=== PATIENT | female | born 1970 | race African-American/Black ===

== ENCOUNTER 2020-04-13 23:35 | Emergency (ER) | payer MEDICAID, OTHER ==
[~2020-04-13] VITALS: Ht 167.6 cm; Wt 81.6 kg
[2020-04-13 23:44] VITALS: BP 130/58
[2020-04-14] MEDS ORDERED: KETOROLAC TROMETH 60MG/2ML VIAL IM ONE (01:00)
== END 2020-04-14 01:23 | disposition home or self-care (01) ==
LOC: ER 23:38
DX: L02.212 Cutaneous abscess of back [any part, except buttock and flank] (principal); F32.9 Major depressive disorder, single episode, unspecified
CPT/HCPCS: 10060; 99283; J1885

== ENCOUNTER 2020-04-16 23:10 | Emergency (ER) | payer MEDICAID ==
[~2020-04-16] VITALS: Ht 167.6 cm; Wt 81.6 kg
[2020-04-17 03:21] VITALS: BP 114/67
== END 2020-04-17 04:32 | disposition home or self-care (01) ==
LOC: ER 23:17
DX: Z48.00 Encounter for change or removal of nonsurgical wound dressing (principal); M54.5 Low back pain; L02.212 Cutaneous abscess of back [any part, except buttock and flank]

== ENCOUNTER 2020-04-20 10:59 | Emergency (ER) | payer MEDICAID ==
[~2020-04-20] VITALS: Ht 167.6 cm; Wt 81.6 kg
[2020-04-20 11:21] VITALS: BP 119/44
== END 2020-04-20 12:19 | disposition home or self-care (01) ==
LOC: ER 10:59
DX: L02.212 Cutaneous abscess of back [any part, except buttock and flank] (principal); Z48.01 Encounter for change or removal of surgical wound dressing

== ENCOUNTER 2021-11-30 04:53 | Emergency (ER) | payer MEDICAID, OTHER ==
[~2021-11-30] VITALS: Ht 167.6 cm; Wt 81.6 kg
[2021-11-30 05:24] LABS: Basophils # (auto) 0 10 ^3/uL (0-0.2); Basophils % (auto) 0.9 % (0.0-2.0); Eosinophils # (auto) 0.1 10 ^3/uL (0-0.8); Eosinophils % (auto) 2.9 % (0.0-7.0); Hematocrit 39.3 % (36.0-46.0); Hemoglobin 13.3 g/dL (12.2-16.2); Mean Corpuscular Hemoglobin 28.3 pg (28.0-32.0); Mean Corpuscular Hgb Conc. 33.8 g/dL (32.0-36.0); Mean Corpuscular Volume 83.6 fL (80.0-100.0); Monocytes # (auto) 0.3 10 ^3/uL (0-1.3); Monocytes % (auto) 5.6 % (0.0-12.0); Neutrophils # (auto) 2.1 10 ^3/uL (1.6-8.6); Neutrophils % (auto) 46.6 % (37.0-80.0); Nucleated Red Blood Cells % 0.1 %; Red Cell Distribution Width 14.1 % (11.8-14.3); White Blood Cell 4.5 10^3/uL (4.4-10.8)
[2021-11-30 05:42] LABS: Calcium 8.9 mg/dL (8.5-10.1); Potassium 3.7 mmol/L (3.5-5.1)
[2021-11-30 05:45] LABS: BUN/Creatinine Ratio 7.3
[2021-11-30 07:22] LABS: Urine Bacteria NONE SEEN /hpf (None Seen); Urine Blood Negative /uL (Negative); Urine Specific Gravity 1.012 (1.001-1.035); Urine WBC 3 /hpf (0 - 5)
[2021-11-30] MEDS ORDERED: NITR-87 PO (08:50)
[2021-11-30] MEDS ORDERED: TRAM-297 PO (08:50)
[2021-11-30 09:02] VITALS: BP 114/63
== END 2021-11-30 09:05 | disposition home or self-care (01) ==
LOC: ER 04:53
DX: D21.9 Benign neoplasm of connective and other soft tissue, unspecified (principal); N39.0 Urinary tract infection, site not specified
CPT/HCPCS: 36415; 76830; 76856; 80048; 81001; 84702; 85025; 86850; 86900; 86901

== ENCOUNTER 2021-12-23 07:54 | Emergency (ER) | payer OTHER, MEDICAID ==
[~2021-12-23] VITALS: Ht 167.6 cm; Wt 77.1 kg
[~2021-12-23 07:54] MED LIST: NITR-87 PO; TRAM-297 PO
[2021-12-23 08:47] VITALS: BP 139/68
[2021-12-23] MEDS ORDERED: ONDANSETRON ODT 4 MG TAB PO ONE (09:15)
[2021-12-23] MEDS ORDERED: HYDROcodone-ACET 5/325MG TAB PO ONE (09:15)
[2021-12-23] MEDS ORDERED: ACE3T PO (09:57)
[2021-12-23] MEDS ORDERED: CYCL-837 PO (09:57)
== END 2021-12-23 10:58 | disposition home or self-care (01) ==
LOC: ER 07:54
DX: S29.012A Strain of muscle and tendon of back wall of thorax, initial encounter (principal); S16.1XXA Strain of muscle, fascia and tendon at neck level, initial encounter; V89.2XXA Person injured in unspecified motor-vehicle accident, traffic, initial encounter; Y93.89 Activity, other specified; Y92.89 Other specified places as the place of occurrence of the external cause; Y99.8 Other external cause status
CPT/HCPCS: 72070; 72125; 99284; Q0162

== ENCOUNTER 2022-04-25 06:48 | Emergency (ER) | payer MEDICAID, OTHER ==
[~2022-04-25] VITALS: Ht 167.6 cm; Wt 77.2 kg
[~2022-04-25 06:48] MED LIST changes: +ACE3T PO; +CYCL-837 PO
[2022-04-25 07:32] LABS: Urine Bacteria FEW /hpf (None Seen); Urine Blood Negative /uL (Negative); Urine Specific Gravity 1.008 (1.001-1.035); Urine WBC 4 /hpf (0 - 5)
[2022-04-25 07:39] VITALS: BP 124/70
[2022-04-25] MEDS ORDERED: CIPR-173 PO (07:52)
== END 2022-04-25 07:53 | disposition home or self-care (01) ==
LOC: ER 06:48
DX: N39.0 Urinary tract infection, site not specified (principal)
CPT/HCPCS: 81001; 87086

== ENCOUNTER 2022-10-05 19:07 | Emergency (ER) | payer MEDICAID ==
[~2022-10-05] VITALS: Ht 167.6 cm; Wt 82.8 kg
[~2022-10-05 19:07] MED LIST changes: +CIPR-173 PO
[2022-10-05] MEDS ORDERED: ALBUTEROL SULF 2.5 MG/0.5ML(0.5%) NEB SOLN NEB ONE (19:30)
[2022-10-05] MEDS ORDERED: EPINEPHrine HCL 1 MG/1 ML AMP IM ONE (19:30)
[2022-10-05] MEDS ORDERED: DexAMETHasone SOD PHOS 10MG/1ML VIAL INJ IV ONE (19:30)
[2022-10-05] MEDS ORDERED: SODIUM CHLORIDE 0.9% 1,000 ML IV ONE (19:30)
[2022-10-05] MEDS ORDERED: diphenhdrAMINE HCL 50 MG/1 ML VL IV ONE (19:30)
[2022-10-05] MEDS ORDERED: FAMOTIDINE (10MG/ML) 2ML VL IV ONE (19:30)
[2022-10-05] MEDS ORDERED: EPIN1INJ IJ (22:01)
[2022-10-05] MEDS ORDERED: LEVOTAB51 PO (22:01)
[2022-10-05] MEDS ORDERED: PRED20TA2 PO (22:01)
[2022-10-05] MEDS ORDERED: DIPH50TA9 PO (22:01)
[2022-10-05] MEDS ORDERED: FAMO20TA10 PO (22:01)
[2022-10-06 06:00] VITALS: BP 117/59
== END 2022-10-06 06:35 | disposition home or self-care (01) ==
LOC: ER 19:07
DX: T78.40XA Allergy, unspecified, initial encounter (principal); X58.XXXA Exposure to other specified factors, initial encounter
CPT/HCPCS: 94640; 96361; 96372; 96374; 96375; 99285; J0171; J1100; J1200; J3490; J7030

== ENCOUNTER 2024-08-08 09:41 | Inpatient (IN) | payer BC, MEDICAID ==
[~2024-08-08] VITALS: Ht 167.6 cm; Wt 77.5 kg
[~2024-08-08 09:41] MED LIST changes: +DIPH50TA9 PO; +EPIN1INJ IJ; +FAMO20TA10 PO; +LEVOTAB51 PO; +PRED20TA2 PO
--- NOTE | 2024-08-08 09:59 | ED.PDOC ---
HPI Comments 54 year old female presents to the ED with chief complaint of chest pain. Patient reports that she had started to experience sternal chest pain approximately 30 minutes ago after intercourse. Patient relays that she had taken methamphetamine at around 1am this morning. Patient denies any N/V/D, SOB, dizziness, headache, or fever. Chief Complaint: Chest Pain Time Seen by MD: 09:54 Primary Care Provider: OUT OF TOWN Reviewed Notes: Nurses Notes, Medications, Allergies Allergies: Coded Allergies: NO KNOWN ALLERGIES (Unverified , 04/13/20) Home Meds Active Scripts Levocetirizine Hydrochloride (Levocetirizine Dihydrochl) 5 Mg Tab, 5 MG PO DAILY, #30 TAB Prov:MARIA INES KNOX MD 10/05/22 Famotidine (PEPCID TABLET) 20 Mg Tb, 1 TAB PO BID, #14 TAB 5 Refills Prov:MARIA INES KNOX MD 10/05/22 Diphenhydramine Hcl (Diphenhydramine Hcl) 50 Mg Tab, 50 MG PO TID PRN, #30 TAB Prov:MARIA INES KNOX MD 10/05/22 Epinephrine (ADRENALIN) 1 Mg/Ml Inj, 1 MG IJ ONCE PRN, #1 INJ Prov:MARIA INES KNOX MD 10/05/22 Prednisone (Prednisone) 20 Mg Tab, 60 MG PO DAILY for 5 Days, #15 TAB Prov:MARIA INES KNOX MD 10/05/22 Ciprofloxacin Hcl (Cipro) 500 Mg Tab, 1 TAB PO BID, #20 TAB Prov:CATHY TINEO 04/25/22 Acetaminophen W/ Codeine (Tylenol W/Cod #3) 1 Tab Tb, 1 TAB PO QID PRN, #10 TAB 0 Refills Prov:VENKATA HERMOSILLO 12/23/21 Cyclobenzaprine Hcl (Cyclobenzaprine Hcl) 5 Mg Tab, 1 TAB PO QPM PRN, #14 TAB 0 Refills Prov:VENKATA HERMOSILLO 12/23/21 Nitrofurantoin Monohydrate Mac (Macrobid) 100 Mg Cap, 100 MG PO BID for 5 Days, #10 CAP Prov:BELEM BURDEN MD 11/30/21 Tramadol Hcl (Ultram) 50 Mg Tab, 1 TAB PO Q6HR, #30 TAB Prov:BELEM BURDEN MD 11/30/21 Information Source: Patient Mode of Arrival: Ambulatory Severity: Moderate Timing: Minutes Duration: Since onset Prehospital treatment: None Location: Substernal Radiation: No Radiation Quality: Aching Onset: At Rest Cardiac Risk Factors: Smoker, Drugs PE Risk Factors: None Past Medical History PAST MEDICAL HISTORY: Depression, UTI'S Surgical History (Other): Left arm surgery. 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 Family History Family History: Reviewed,noncontributory to illness, Family hx of HTN Social History Smoker: Cigarettes Alcohol: Occasionally Drugs: Methamphetamine Lives In: Home Constitutional: denies: chills, diaphoresis, fatigue, fever, malaise, sweats, weakness, others EENTM: denies: blurred vision, double vision, ear bleeding, ear discharge, ear drainage, ear pain, ear ringing, eye pain, eye redness, hearing loss, mouth pain, mouth swelling, nasal discharge, nose bleeding, nose congestion, nose pain, photophobia, tearing, throat pain, throat swelling, voice changes, others Respiratory: denies: cough, hemoptysis, orthopnea, SOB at rest, shortness of breath, SOB with excertion, stridor, wheezing, others Cardiovascular: reports: chest pain; denies: dizzy spells, diaphoresis, Dyspnea on exertion, edema, irregular heart beat, left arm pain, lightheadedness, palpitations, PND, syncope, others Gastrointestinal: denies: abdomen distended, abdominal pain, blood streaked bowels, constipated, diarrhea, dysphagia, difficulty swallowing, hematemesis, melena, nausea, poor appetite, poor fluid intake, rectal bleeding, rectal pain, vomiting, others Genitourinary: denies: abnormal vagina bleeding, burning, dyspareunia, dysuria, flank pain, frequency, hematuria, incontinence, pain, , vagina discharge, urgency, others Neurological: denies: dizziness, fainting, headache, left sided numbness, left sided weakness, numbness, paresthesia, pre-existing deficit, right sided numbness, right sided weakness, seizure, speech problems, tingling, tremors, weakness, others Musculoskeletal: denies: back pain, gout, joint pain, joint swelling, muscle pain, muscle stiffness, neck pain, others Integumetry: denies: bruises, change in color, change in hair/nails, dryness, laceration, lesions, lumps, rash, wounds, others Allergic/Immunocompromised: denies: Difficulty Healing, Frequent Infections, Hives, Itching, others Hematologic/Lymphatic: denies: anemia, blood clots, easy bleeding, easy bruising, swollen glands, others Endocrine: denies: excessive hunger, excessive sweating, excessive thirst, excessive urination, flushing, intolerance to cold, intolerance to heat, unexplained weight gain, unexplained weight loss, others Psychiatric: denies: anxiety, bipolar disorder, depression, hopeless, panic disorder, schizophrenia, sleepless, suicidal, others All Other Systems: Reviewed and Negative Physical Exam General Appearance: Moderate Distress, Normal HEENT: Normal ENT Inspection, PERRL/EOMI Neck: Full Range of Motion, Non-Tender, Normal, Normal Inspection Respiratory: Chest Non-Tender, Lungs Clear, No Accessory Muscle Use, No Respiratory Distress, Normal Breath Sounds Cardiovascular: No Edema, No JVD, No Murmur, No Gallop, Normal Peripheral Pulses, Regular Rate/Rhythm Breast Exam: Deferred Gastrointestinal: No Organomegaly, Non Tender, No Pulsatile Mass, Normal Bowel Sounds, Soft Genitalia: Deferred Pelvic: Deferred Rectal: Deferred Extremities: No calf tenderness, Normal capillary refill, Normal inspection, Normal range of motion, Non-tender, No pedal edema Musculoskeletal : Apperance: Normal Neurologic: Alert, uniform force captain II-XII nml as Tested, No Motor Deficits, Normal Affect, Normal Mood, No Sensory Deficits Cerebellar Function: Normal Reflexes: Normal Skin: Dry, Normal Color, Warm Peripheral Pulses: 3+ Radial (R), 3+ Radial (L) Lymphatic: No Adenopathy Was a procedure done? Was a procedure done?: No CP Differential Dx Differential Diagnosis: A-fib, A-Flutter, Angina, Anxiety / Panic Attack, Atrial Dysrhythmia, Electrolyte Disorder X-Ray, Labs, Meds, VS Vital Signs Date Time Temp Pulse Resp B/P (MAP) Pulse Ox O2 Delivery O2 Flow Rate FiO2 08/08/24 10:41 97.6 74 18 109/69 (82) 100 97.6 08/08/24 10:37 98.0 84 17 107/68 (81) 100 98.0 08/08/24 10:37 84 17 08/08/24 09:48 82 08/08/24 09:42 98.0 84 17 107/68 (81) 100 Lab Test 08/08/24 09:50 Range/Units White Blood Count 5.7 4.4-10.8 10^3/uL Red Blood Count 4.70 4.0-5.20 10^6/uL Hemoglobin 12.9 12.2-16.2 g/dL Hematocrit 38.8 36.0-46.0 % Mean Corpuscular Volume 82.7 80.0-100.0 fL Mean Corpuscular Hemoglobin 27.4 L 28.0-32.0 pg Mean Corpuscular Hemoglobin Concent 33.1 32.0-36.0 g/dL Red Cell Distribution Width 13.6 11.8-14.3 % Platelet Count 282 140-450 10^3/uL Mean Platelet Volume 8.4 6.9-10.8 fL Neutrophils (%) (Auto) 41.2 37.0-80.0 % Lymphocytes (%) (Auto) 51.6 H 10.0-50.0 % Monocytes (%) (Auto) 5.6 0.0-12.0 % Eosinophils (%) (Auto) 1.2 0.0-7.0 % Basophils (%) (Auto) 0.4 0.0-2.0 % Neutrophils # (Auto) 2.4 1.6-8.6 10 ^3/uL Lymphocytes # (Auto) 3.0 0.4-5.4 10 ^3/uL Monocytes # (Auto) 0.3 0-1.3 10 ^3/uL Eosinophils # (Auto) 0.1 0-0.8 10 ^3/uL Basophils # (Auto) 0 0-0.2 10 ^3/uL Nucleated Red Blood Cells 0.1 % Sodium Level 140 136-145 mmol/L Potassium Level 3.5 3.5-5.1 mmol/L Chloride Level 104 98-107 mmol/L Carbon Dioxide Level 29 20-31 mmol/L Anion Gap 7 5-15 Blood Urea Nitrogen 12 9-23 mg/dL Creatinine 1.17 H 0.550-1.02 mg/dL Glomerular Filtration Rate Calc 55 >90 mL/min BUN/Creatinine Ratio 10.3 10.0-20.0 Serum Glucose 124 H 74-106 mg/dL Calcium Level 9.9 8.7-10.4 mg/dL Total Bilirubin 0.4 0.2-1.0 mg/dL Aspartate Amino Transferase (AST) 26 13-40 U/L Alanine Aminotransferase (ALT) 29 7-40 U/L Alkaline Phosphatase 91 46-116 U/L Troponin I High Sensitivity < 3 L </=34 ng/L Total Protein 7.4 5.7-8.2 g/dL Albumin 4.6 3.2-4.8 g/dL Current Medications Medications (Trade) Dose Ordered Sig/Jordin Route Start Time Stop Time Status Last Admin Aspirin 325 mg ONCE ONCE PO 08/08/24 10:00 08/08/24 10:01 DC 08/08/24 10:28 Patient alert. Complaining of chest pain. Was given aspirin. Vitals stable. Smoke cigarettes. Counseled patient on effects of smoking cigarettes. Had methamphetamine. Chest pain upon exertion. EKG reviewed does not show any acute changes. Risk factors for coronary artery disease. Explained to the patient. Continue cardiac monitoring. Chest XR: FINDINGS: Medical devices: None. Cardiomediastinal: The heart is normal in size. Pulmonary vasculature is within normal limits. Lungs: No focal pulmonary opacity is seen. The costophrenic angles are clear. No pneumothorax. Bones/soft tissues: No acute abnormality is noted. IMPRESSION: 1. No acute cardiopulmonary disease. Time of 1ST Reevaluation: 10:54 Reevaluation 1ST: Unchanged Patient Education/Counseling: Diagnosis, Treatment Family Education/Counseling: No Family Present Departure 1 Departure Time of Disposition: 10:12 Impression: Primary Impression: Chest pain of unknown etiology Disposition: ADMITTED INPATIENT Admit to: Med Surg Condition: Guarded Critical Care Note Critical Care Time?: Yes (45 min-critical care time only) Critical care comment: Monitor chest pain Stability Stability form required: No Heart Score Heart Score: Heart Score Response (Comments) Value History Moderate Suspicious 1 EKG Normal 0 Age 45-64 1 Risk Factors 1 or 2 risk factors 1 Troponin Normal limit 0 Total 3 I personally scribed for RODOLFO CRUZ MD ([email or web address]) on 08/08/24 at 09:59. Electronically submitted by Feliciano Polanco ([email or web address]). I personally scribed for RODOLFO CRUZ MD ([email or web address]) on 08/08/24 at 10:23. Electronically submitted by Feliciano Polanco ([email or web address]). RODOLFO CRUZ MD Aug 08, 2024 09:59
--- NOTE | 2024-08-08 10:18 | DVH ---
Procedure: XY CHEST PORTABLE 08/08/2024 09:59 AM Indication: CP Comparison: None TECHNIQUE: XY CHEST PORTABLE FINDINGS: Medical devices: None. Cardiomediastinal: The heart is normal in size. Pulmonary vasculature is within normal limits. Lungs: No focal pulmonary opacity is seen. The costophrenic angles are clear. No pneumothorax. Bones/soft tissues: No acute abnormality is noted. IMPRESSION: 1. No acute cardiopulmonary disease.
[2024-08-08 10:19] LABS: Alanine Aminotransferase 29 U/L (7-40); Albumin 4.6 g/dL (3.2-4.8); Alkaline Phosphatase 91 U/L (46-116); Anion Gap 7 (5-15); Aspartate Aminotransferase 26 U/L (13-40); BUN/Creatinine Ratio 10.3 (10.0-20.0); Bilirubin, Total 0.4 mg/dL (0.2-1.0); Blood Urea Nitrogen 12 mg/dL (9-23); Calcium 9.9 mg/dL (8.7-10.4); Carbon Dioxide 29 mmol/L (20-31); Chloride 104 mmol/L (98-107); Sodium 140 mmol/L (136-145); Total Protein 7.4 g/dL (5.7-8.2)
[2024-08-08 10:25] LABS: Glucose 124 mg/dL (74-106); Potassium 3.5 mmol/L (3.5-5.1)
[2024-08-08 10:28] LABS: Basophils # (auto) 0 10 ^3/uL (0-0.2); Basophils % (auto) 0.4 % (0.0-2.0); Eosinophils # (auto) 0.1 10 ^3/uL (0-0.8); Eosinophils % (auto) 1.2 % (0.0-7.0); Hematocrit 38.8 % (36.0-46.0); Hemoglobin 12.9 g/dL (12.2-16.2); Lymphocytes % (auto) 51.6 % (10.0-50.0); Mean Corpuscular Hemoglobin 27.4 pg (28.0-32.0); Mean Corpuscular Hgb Conc. 33.1 g/dL (32.0-36.0); Mean Corpuscular Volume 82.7 fL (80.0-100.0); Monocytes # (auto) 0.3 10 ^3/uL (0-1.3); Monocytes % (auto) 5.6 % (0.0-12.0); Neutrophils # (auto) 2.4 10 ^3/uL (1.6-8.6); Neutrophils % (auto) 41.2 % (37.0-80.0); Nucleated Red Blood Cells % 0.1 %; Platelet Count (auto) 282 10^3/uL (140-450); Red Cell Distribution Width 13.6 % (11.8-14.3); White Blood Cell 5.7 10^3/uL (4.4-10.8)
[2024-08-08] MEDS: ASPirin 325 MG TAB PO ONE (10:28)
--- NOTE | 2024-08-08 12:12 | ECG ---
[facility] Test Date: 2024-08-08 Test Time: 09:48:09 Pat Name: GERI PABLO Department: ED Room: Gender: F Content Creation Manager: : 1970 Requested By: RODOLFO CRUZ Order Number: [id number] Reading MD: Measurements Intervals [place] Rate: 82 P: 69 AL: 134 QRS: 69 QRSD: 84 T: 64 QT: 378 QTc: 442 Interpretive Statements Sinus rhythm Left atrial enlargement Baseline wander in lead(s) V2 Please click the below link to view image of tracing.
[2024-08-08 15:33] LABS: Urine Bacteria None Seen /hpf (None Seen)
[2024-08-08 15:50] LABS: Urine Blood Negative /uL (Negative); Urine Clarity Clear (Clear); Urine Color Light-Yellow (Yellow); Urine Protein, UAD Negative (Negative); Urine Specific Gravity 1.022 (1.001-1.035); Urine Squamous Epithelial Cell FEW /hpf (<5); Urine Urobilinogen Normal (Negative); Urine WBC 11 /HPF (0-5); Urine pH 6.5 (5.0-9.0)
[2024-08-08] MEDS ORDERED: ACETAMINOPHEN 325 MG TAB PO PRN (18:45)
[2024-08-08] MEDS ORDERED: ONDANSETRON HCL 4 MG/2 ML VIAL IV PRN (18:45)
[2024-08-08 21:00] VITALS: RESP 20; O2SAT 98
[2024-08-08 21:14] VITALS: BP 115/62; PULSE 77; RESP 17; TEMP 97.9; O2SAT 99
[2024-08-08] MEDS ORDERED: GABA-1250 (21:27)
--- NOTE | 2024-08-08 22:54 | DVHHP2 ---
History of Present Illness Reason for Visit: Chest pain History of Present Illness 54-year-old female presents for evaluation of chest pain. Patient reports using methamphetamine last night. She states that today in the morning after having intercourse she developed substernal pressure-like nonradiating chest pain with associated shortness for breath and nausea. Currently rates the pain at 3/10 intensity. Denies shortness or breath at the moment. No other acute complaints reported. Past Medical History Denies Past Surgical History Left arm surgery Family History Noncontributory Smoke: No ALCOHOL: occassional Drugs: Other (Methamphetamine) Lives: with Family Review of Systems Review of Systems Review of systems are currently negative otherwise addressed in HPI. Allergies: Coded Allergies: NO KNOWN ALLERGIES (Unverified , 04/13/20) Medications Current Medications Medications Dose Ordered Sig/Jordin Route Start Time Stop Time Status Last Admin Dose Admin Temazepam 15 mg QHSP PRN PO 08/08/24 18:45 Ondansetron HCl 4 mg Q4HP PRN IV 08/08/24 18:45 Acetaminophen 650 mg Q6HP PRN PO 08/08/24 18:45 Exam Vital Signs Vital Signs Date Time Temp Pulse Resp B/P (MAP) Pulse Ox O2 Delivery O2 Flow Rate FiO2 08/08/24 21:14 97.9 77 17 115/62 (79) 99 97.9 Exam Gen: 54-year-old female in no apparent distress Skin: Warm, dry, normal color and texture, no rash. HEENT: Normocephalic atraumatic, mucous membranes moist and pink. Neck: Cervical and supraclavicular nodes normal without enlargement, trachea is midline, thyroid gland is normal without masses. Pulmonary: Clear to auscultation and percussion bilaterally. Cardiac: Regular rate and rhythm. No murmur Abdomen: Soft, nontender, nondistended, bowel sounds present all 4 quadrants, no guarding, no rigidity, no organomegaly. Extremities: No cyanosis, clubbing, no edema Neuro: Cranial nerves II through XII grossly intact, normal affect and speech, no focal motor deficits. Labs/Xrays ORDERING PHYSICIAN: RODOLFO CRUZ MD PROCEDURE(s): CXRP - CHEST PORTABLE REASON: CP ORDER NUMBER(s): [id number], ACCESSION NUMBER(s): [id number] Procedure: XY CHEST PORTABLE 08/08/2024 09:59 AM Indication: CP Comparison: None TECHNIQUE: XY CHEST PORTABLE FINDINGS: Medical devices: None. Cardiomediastinal: The heart is normal in size. Pulmonary vasculature is within normal limits. Lungs: No focal pulmonary opacity is seen. The costophrenic angles are clear. No pneumothorax. Bones/soft tissues: No acute abnormality is noted. IMPRESSION: 1. No acute cardiopulmonary disease. Labs Test 08/08/24 13:54 08/08/24 09:57 08/08/24 09:50 Range/Units Troponin I High Sensitivity < 3 L </=34 ng/L Urine Color Light-yellow Yellow Urine Clarity Clear Clear Urine pH 6.5 5.0-9.0 Urine Specific [place] 1.022 1.001-1.035 Urine Protein Negative Negative Urine Ketones Negative Negative Urine Blood Negative Negative /uL Urine Nitrite Negative Negative Urine Bilirubin Negative Negative Urine Urobilinogen Normal Negative mg/dL Urine Leukocyte Esterase 2+ Negative /uL Urine RBC 1 0 - 4 /hpf Urine Microscopic WBC 11 H 0-5 /HPF Urine Squamous Epithelial Cells Few <5 /hpf Urine Bacteria None seen None Seen /hpf Urine Glucose Normal Normal mg/dL White Blood Count 5.7 4.4-10.8 10^3/uL Red Blood Count 4.70 4.0-5.20 10^6/uL Hemoglobin 12.9 12.2-16.2 g/dL Hematocrit 38.8 36.0-46.0 % Mean Corpuscular Volume 82.7 80.0-100.0 fL Mean Corpuscular Hemoglobin 27.4 L 28.0-32.0 pg Mean Corpuscular Hemoglobin Concent 33.1 32.0-36.0 g/dL Red Cell Distribution Width 13.6 11.8-14.3 % Platelet Count 282 140-450 10^3/uL Mean Platelet Volume 8.4 6.9-10.8 fL Neutrophils (%) (Auto) 41.2 37.0-80.0 % Lymphocytes (%) (Auto) 51.6 H 10.0-50.0 % Monocytes (%) (Auto) 5.6 0.0-12.0 % Eosinophils (%) (Auto) 1.2 0.0-7.0 % Basophils (%) (Auto) 0.4 0.0-2.0 % Neutrophils # (Auto) 2.4 1.6-8.6 10 ^3/uL Lymphocytes # (Auto) 3.0 0.4-5.4 10 ^3/uL Monocytes # (Auto) 0.3 0-1.3 10 ^3/uL Eosinophils # (Auto) 0.1 0-0.8 10 ^3/uL Basophils # (Auto) 0 0-0.2 10 ^3/uL Nucleated Red Blood Cells 0.1 % Sodium Level 140 136-145 mmol/L Potassium Level 3.5 3.5-5.1 mmol/L Chloride Level 104 98-107 mmol/L Carbon Dioxide Level 29 20-31 mmol/L Anion Gap 7 5-15 Blood Urea Nitrogen 12 9-23 mg/dL Creatinine 1.17 H 0.550-1.02 mg/dL Glomerular Filtration Rate Calc 55 >90 mL/min BUN/Creatinine Ratio 10.3 10.0-20.0 Serum Glucose 124 H 74-106 mg/dL Calcium Level 9.9 8.7-10.4 mg/dL Total Bilirubin 0.4 0.2-1.0 mg/dL Aspartate Amino Transferase (AST) 26 13-40 U/L Alanine Aminotransferase (ALT) 29 7-40 U/L Alkaline Phosphatase 91 46-116 U/L Total Protein 7.4 5.7-8.2 g/dL Albumin 4.6 3.2-4.8 g/dL Assessment/Plan Assessment/Plan Assessment Unstable angina Urinary tract infection Plan Admit the patient to [facility] to the hospitalist Echocardiogram pending Rocephin Continue treatment per orders. Plan discussed with: Patient My Orders [facility] - [facility] Procedure Category Date Status Time Basic Metabolic Panel LAB 08/09/24 Verified 04:00 Admit ADMIT 08/08/24 Transmitted 18:40 Temazepam (Restoril) PHA 08/08/24 In Process 18:45 Ondansetron Hcl PHA 08/08/24 In Process (Zofran) 18:45 Cardiac DIET 08/09/24 Transmitted Diet-2gna,Lofat,Lochol Breakfast Echo 2d Mode Cardiac US 08/08/24 Logged DOP 18:40 Condition: Stable MARTINEZ 08/08/24 In Process 18:40 Acetaminophen Tablet PHA 08/08/24 In Process (Tylenol Tablet) 18:45 Bedrest With Bathroom MARTINEZ 08/08/24 In Process Privileg 18:40 Date of Service: Aug 08, 2024 Billing Provider: NATE SIDHU Common Visit Codes: [id number] INP/OBS CARE (HIGH) NATE SIDHU Aug 08, 2024 22:54
[2024-08-09 05:00] VITALS: BP 117/75; PULSE 81; RESP 18; TEMP 97.7; O2SAT 99
[2024-08-09 07:24] LABS: Anion Gap 6 (5-15); Calcium 9.5 mg/dL (8.7-10.4); Carbon Dioxide 28 mmol/L (20-31); Chloride 105 mmol/L (98-107); Potassium 3.8 mmol/L (3.5-5.1); Sodium 139 mmol/L (136-145)
[2024-08-09 07:30] LABS: BUN/Creatinine Ratio 11.6 (10.0-20.0); Blood Urea Nitrogen 11 mg/dL (9-23); Glucose 91 mg/dL (74-106)
[2024-08-09 08:00] VITALS: PULSE 73; RESP 20; O2SAT 98
[2024-08-09 09:00] VITALS: BP 111/65; PULSE 73; RESP 20; TEMP 98; O2SAT 98
[2024-08-09] MEDS: cefTRIAXone 1GM/50ML D5W 50 ML IV SCH (10:02)
[2024-08-09] MEDS: ASPirin 81 mg TAB PO SCH (10:02)
[2024-08-09 13:00] VITALS: BP 118/79; PULSE 77; RESP 18; TEMP 98.1; O2SAT 95
--- NOTE | 2024-08-09 13:27 | DVHSR ---
APPROVED REPORT EXAM: Two-dimensional and M-mode echocardiogram with Doppler and color Doppler. Blood Pressure: 117/75 mmHg INDICATION Chest Pain RISK FACTORS Height: 5'6", Weight: 170 DIMENSIONS LVDd3.7 (3.8-5.7cm)LA (2D)2.6 (1.9-4.0cm)Aortic Root2.4 (2.0-3.7cm) LVDs2.6 (2.5-4.0cm)LA (MM) (1.9-4.0cm)Aortic Cusp Exc1.5 (1.5-2.0cm) EF (%) 56.0 (55-70%)Rt. Atrium3.1 (1.9-4.0cm)Asc. Aorta2.3 cm IVSd0.7 (0.7-1.1cm)RV (D) (1.8-2.4cm) PWd1.0 (0.7-1.1cm) Mitral Valve MitralMitral Stenosis E wave0.92m/sMV Mean GR.mmHg A wave0.75m/sMV Peak GR.mmHg E/A ratio1.22D MVAcm2 DECEL [id number] 1/2 [place] Aortic Valve Aortic ValveAortic Stenosis V10.99m/Samy Mean GR.5mmHg V21.45m/Samy Peak GR.8mmHg LVOT Diameter2.0 (1.8-2.4cm)Doppler AVA2.14cm2 Pulmonic Valve V20.75m/s Other Information Quality : Technically LimitedRhythm : Technically limited study due to body habitus. Conclusion Technically good study. Sinus rhythm. Normal chamber sizes. Normal valves. EF normal at 60% with normal RV function. Dopplers unremarkable. No pericardial effusion masses or vegetations.
--- NOTE | 2024-08-09 15:23 | DVHPN2 ---
Reviewed: Care Plan, H&P, Labs, Medications, Previous Orders, Radiology Changes from previous H/P or p: No Changes Objective Vitals Vital Signs Date Time Temp Pulse Resp B/P (MAP) Pulse Ox O2 Delivery O2 Flow Rate FiO2 08/09/24 13:00 98.1 77 18 118/79 (92) 95 98.1 08/09/24 08:00 Room Air* 0 21 Intake/Output Intake and Output 08/09/24 07:00 Intake Total 225 ml Balance 225 ml Intake Oral 225 ml # Voids 2 Medications Current Medications Medications Dose Ordered Sig/Jordin Route Start Time Stop Time Status Last Admin Dose Admin Temazepam 15 mg QHSP PRN PO 08/08/24 18:45 Ondansetron HCl 4 mg Q4HP PRN IV 08/08/24 18:45 Acetaminophen 650 mg Q6HP PRN PO 08/08/24 18:45 Ceftriaxone Sodium 50 ml @ 100 mls/hr DAILY@09 IV 08/09/24 09:00 08/09/24 10:02 100 MLS/HR Aspirin 81 mg DAILY PO 08/09/24 10:00 08/09/24 10:02 81 MG Atorvastatin Calcium 10 mg HS PO 08/09/24 22:00 Laboratory Results Laboratory Tests 08/08/24 09:50 08/09/24 06:09 Chemistry Test 08/09/24 06:09 Calcium Level 9.5 mg/dL (8.7-10.4) Urinalysis Test 08/08/24 09:57 Urine Color Light-yellow (Yellow) Urine Clarity Clear (Clear) Urine pH 6.5 (5.0-9.0) Urine Specific [place] 1.022 (1.001-1.035) Urine Protein Negative (Negative) Urine Ketones Negative (Negative) Urine Blood Negative /uL (Negative) Urine Nitrite Negative (Negative) Urine Bilirubin Negative (Negative) Urine Urobilinogen Normal mg/dL (Negative) Urine Leukocyte Esterase 2+ /uL (Negative) Urine RBC 1 /hpf (0 - 4) Urine Microscopic WBC 11 /HPF (0-5) H Urine Squamous Epithelial Cells Few /hpf (<5) Urine Bacteria None seen /hpf (None Seen) Urine Glucose Normal mg/dL (Normal) Labs and/or images reviewed: Labs reviewed by me, Image(s) reviewed by me Assessment/Plan Assessment/Plan Chest Pain troponin negative x3: Cardiology consult by Dr. Monk Chronic current meth use: Counseling UTI: Rocephin We will check urine drug screen Plan discussed with: Patient My Orders Orders - FRANTZ FOSTER MD Procedure Category Date Status Time * Cardiology Consult CONS 08/09/24 Verified 15:20 Date of Service: Aug 09, 2024 Billing Provider: FRANTZ FOSTER MD Common Visit Codes: [id number] INP/OBS CARE(HIGH) FRANTZ FOSTER MD Aug 09, 2024 15:23
--- NOTE | 2024-08-09 16:33 | DVHINCON2 ---
Date Seen: Aug 09, 2024 Referring Physician MD Yoni Reason for Consultation Chest pain History of Present Illness This is a pleasant 54-year-old female who presented to the emergency room with a chief complaint of chest pain. The patient reports she had just finished sexual intercourse when she developed a sudden onset of chest pain described as substernal, nonradiating, soreness like, and worse with inspiration and movement. She denies any further symptoms. She underwent a 12 lead electrocardiogram revealing a sinus rhythm suggestive of left atrial enlargement. Serial troponin levels are negative. Denies any significant past medical history. Denies family history for cardiovascular disease. Admits to methamphetamine use for the past six months, occasional alcohol use, and e-cigarette use. Past Medical History Past medical history reviewed. No other significant than mentioned above. Past Surgical History Left arm Family History: Hypertension G8 MOTHER Pacemaker G8 MOTHER Family History Family history reviewed. Not significant for cardiovascular disease. Social History See HPI. Allergies: Coded Allergies: NO KNOWN ALLERGIES (Unverified , 04/13/20) Home Meds Reported Medications Gabapentin (Gabapentin) 300 Mg Cap 08/08/24 Home Meds Home medications reviewed. Current Medications Current Medications Medications (Trade) Dose Ordered Sig/Jordin Route PRN Reason Start Time Stop Time Status Last Admin Temazepam (Restoril) 15 mg QHSP PRN PO FOR INSOMNIA 08/08/24 18:45 Ondansetron HCl (Zofran) 4 mg Q4HP PRN IV NAUSEA / VOMITING 08/08/24 18:45 Acetaminophen (Tylenol Tablet) 650 mg Q6HP PRN PO PAIN SCALE 1-3 OR TEMP>100.4 08/08/24 18:45 Ceftriaxone Sodium 50 ml @ 100 mls/hr DAILY@09 IV 08/09/24 09:00 08/09/24 10:02 Aspirin 81 mg DAILY PO 08/09/24 10:00 08/09/24 10:02 Atorvastatin Calcium (Lipitor) 10 mg HS PO 08/09/24 22:00 Review of Systems Constitutional: No symptom reported Ears, Nose, & Throat: No symptom reported Eyes: No symptom reported Neurological: No symptoms reported Pulmonary/Respiratory: No symptom reported Cardiovascular: No symptom reported Gastrointestinal: No symptom reported Genitourinary: No symptom reported Musculoskeletal: Noncardiac Chest pain Skin: No symptom reported Psychiatric: No symptom reported Endocrine: No symptom reported Hemotologic/Lymphatic: No symptom reported Vital Signs Vital Signs Date Time Temp Pulse Resp B/P (MAP) Pulse Ox O2 Delivery O2 Flow Rate FiO2 08/09/24 13:00 98.1 77 18 118/79 (92) 95 98.1 08/09/24 08:00 Room Air* 0 21 Physical Exam General Appearance: Cooperative. Well developed. Well nourished. In no acute distress Head Exam: Normal inspection Neck Exam: Normal inspection. Non-tender. Normal alignment Pulmonary/Respiratory: Chest non-tender. Clear bilateral breath sounds Cardiovascular/Chest: Regular rate and rhythm. S1, S2. NSR. No murmurs. No JVD. Peripheral Pulses: 2+ Radial (R). 2+ Radial (L). 2+ Pedal (R). 2+ Pedal (L) Abdominal Exam: Normal bowel sounds. Soft. Nontender. No hepatospenomegaly. No masses Ankle Exam: Negative ankle edema Lower extremities: Negative lower extremity edema Neuro/Mental Status: A&O x4. Coherent Thoughts/Psych: Normal thought pattern. Appropriate mood and affect. Good judgement and insight Appearance: In no acute distress Skin Exam: Normal inspection. Normal color. Warm. Dry Labs/Diagnostic Data Labs Test 08/09/24 06:09 08/08/24 13:54 08/08/24 09:57 08/08/24 09:50 Range/Units Sodium Level 139 136-145 mmol/L Potassium Level 3.8 3.5-5.1 mmol/L Chloride Level 105 98-107 mmol/L Carbon Dioxide Level 28 20-31 mmol/L Anion Gap 6 5-15 Blood Urea Nitrogen 11 9-23 mg/dL Creatinine 0.95 0.550-1.02 mg/dL Glomerular Filtration Rate Calc 71 >90 mL/min BUN/Creatinine Ratio 11.6 10.0-20.0 Serum Glucose 91 74-106 mg/dL Calcium Level 9.5 8.7-10.4 mg/dL Troponin I High Sensitivity < 3 L </=34 ng/L Urine Color Light-yellow Yellow Urine Clarity Clear Clear Urine pH 6.5 5.0-9.0 Urine Specific [place] 1.022 1.001-1.035 Urine Protein Negative Negative Urine Ketones Negative Negative Urine Blood Negative Negative /uL Urine Nitrite Negative Negative Urine Bilirubin Negative Negative Urine Urobilinogen Normal Negative mg/dL Urine Leukocyte Esterase 2+ Negative /uL Urine RBC 1 0 - 4 /hpf Urine Microscopic WBC 11 H 0-5 /HPF Urine Squamous Epithelial Cells Few <5 /hpf Urine Bacteria None seen None Seen /hpf Urine Glucose Normal Normal mg/dL White Blood Count 5.7 4.4-10.8 10^3/uL Red Blood Count 4.70 4.0-5.20 10^6/uL Hemoglobin 12.9 12.2-16.2 g/dL Hematocrit 38.8 36.0-46.0 % Mean Corpuscular Volume 82.7 80.0-100.0 fL Mean Corpuscular Hemoglobin 27.4 L 28.0-32.0 pg Mean Corpuscular Hemoglobin Concent 33.1 32.0-36.0 g/dL Red Cell Distribution Width 13.6 11.8-14.3 % Platelet Count 282 140-450 10^3/uL Mean Platelet Volume 8.4 6.9-10.8 fL Neutrophils (%) (Auto) 41.2 37.0-80.0 % Lymphocytes (%) (Auto) 51.6 H 10.0-50.0 % Monocytes (%) (Auto) 5.6 0.0-12.0 % Eosinophils (%) (Auto) 1.2 0.0-7.0 % Basophils (%) (Auto) 0.4 0.0-2.0 % Neutrophils # (Auto) 2.4 1.6-8.6 10 ^3/uL Lymphocytes # (Auto) 3.0 0.4-5.4 10 ^3/uL Monocytes # (Auto) 0.3 0-1.3 10 ^3/uL Eosinophils # (Auto) 0.1 0-0.8 10 ^3/uL Basophils # (Auto) 0 0-0.2 10 ^3/uL Nucleated Red Blood Cells 0.1 % Total Bilirubin 0.4 0.2-1.0 mg/dL Aspartate Amino Transferase (AST) 26 13-40 U/L Alanine Aminotransferase (ALT) 29 7-40 U/L Alkaline Phosphatase 91 46-116 U/L Total Protein 7.4 5.7-8.2 g/dL Albumin 4.6 3.2-4.8 g/dL Assessment Noncardiac chest pain, likely pleuritic in nature Methamphetamines dependence E-cigarette use Alcohol use Plan/Recommendation (Dr. Monk) The patient underwent a transthoracic echocardiogram revealing an LVEF of 60% with normal RV function. Serial troponin levels are negative. Twelve lead electrocardiogram is unremarkable. Heart Score of 1 point placing the patient at a low-risk for major cardiac events. Strongly counseled on drug abuse cessation. There is no further cardiac workup indicated at this time. Kindly call if in need to re-consult. Thank you for allowing us to participate in this patient's care. Please call if you have any questions or concerns. This medical document was created using an electronic medical record system with voice recognition software and computerized dictation system. Although this document has been carefully reviewed, there might still be some phonetic and typographical errors. Occasional wrong-word or ``sound-alike substitutions m ay have occurred due to the inherent limitations of voice recognition software. These areas are purely typographical due to imperfections of the software programs and do not reflect any compromise in the patient's medical care. Please read the chart carefully and recognize, using context, where these substitutions have occurred. Plan discussed with: Patient, Other NYHA Physical activity limitations: NA Date of Service: Aug 09, 2024 Billing Provider: LEONARD BARRIOS Cardiology Common Codes: 27243-[id number] INP/OBS CARE (High) LEONARD BARRIOS Aug 09, 2024 16:32
[2024-08-09 16:57] VITALS: BP 111/54; PULSE 102; RESP 20; TEMP 98.1; O2SAT 99
[2024-08-09] MEDS: ATORVASTATIN 20 MG TAB PO SCH (20:31)
[2024-08-09 21:00] VITALS: BP 115/68; PULSE 84; RESP 16; TEMP 97.5; O2SAT 100
[2024-08-09] MEDS: TEMAZEPAM 15 MG CAP PO PRN (23:47)
[2024-08-10 01:00] VITALS: BP 120/63; PULSE 86; RESP 16; TEMP 97.7; O2SAT 99
[2024-08-10 04:58] VITALS: BP 114/65; PULSE 98; RESP 15; TEMP 98.1; O2SAT 97
[2024-08-10 09:00] VITALS: BP 110/62; PULSE 70; RESP 18; TEMP 98; O2SAT 100
[2024-08-10] MEDS ORDERED: TRAM-626 PO (11:31)
--- NOTE | 2024-08-10 11:38 | DVHDS2 ---
Discharge Summary Date of Admission Aug 08, 2024 at 18:40 Date of Discharge: Aug 10, 2024 Admitting Diagnosis Chest pain Wounds: None Labs/Diagnostic Data: Laboratory Results Test 08/09/24 06:09 08/08/24 13:54 08/08/24 09:57 08/08/24 09:50 Sodium Level 139 mmol/L (136-145) Potassium Level 3.8 mmol/L (3.5-5.1) Chloride Level 105 mmol/L (98-107) Carbon Dioxide Level 28 mmol/L (20-31) Anion Gap 6 (5-15) Blood Urea Nitrogen 11 mg/dL (9-23) Creatinine 0.95 mg/dL (0.550-1.02) Glomerular Filtration Rate Calc 71 mL/min (>90) BUN/Creatinine Ratio 11.6 (10.0-20.0) Serum Glucose 91 mg/dL (74-106) Calcium Level 9.5 mg/dL (8.7-10.4) Troponin I High Sensitivity < 3 ng/L (</=34) Urine Color Light-yellow (Yellow) Urine Clarity Clear (Clear) Urine pH 6.5 (5.0-9.0) Urine Specific [place] 1.022 (1.001-1.035) Urine Protein Negative (Negative) Urine Ketones Negative (Negative) Urine Blood Negative /uL (Negative) Urine Nitrite Negative (Negative) Urine Bilirubin Negative (Negative) Urine Urobilinogen Normal mg/dL (Negative) Urine Leukocyte Esterase 2+ /uL (Negative) Urine RBC 1 /hpf (0 - 4) Urine Microscopic WBC 11 /HPF (0-5) Urine Squamous Epithelial Cells Few /hpf (<5) Urine Bacteria None seen /hpf (None Seen) Urine Glucose Normal mg/dL (Normal) White Blood Count 5.7 10^3/uL (4.4-10.8) Red Blood Count 4.70 10^6/uL (4.0-5.20) Hemoglobin 12.9 g/dL (12.2-16.2) Hematocrit 38.8 % (36.0-46.0) Mean Corpuscular Volume 82.7 fL (80.0-100.0) Mean Corpuscular Hemoglobin 27.4 pg (28.0-32.0) Mean Corpuscular Hemoglobin Concent 33.1 g/dL (32.0-36.0) Red Cell Distribution Width 13.6 % (11.8-14.3) Platelet Count 282 10^3/uL (140-450) Mean Platelet Volume 8.4 fL (6.9-10.8) Neutrophils (%) (Auto) 41.2 % (37.0-80.0) Lymphocytes (%) (Auto) 51.6 % (10.0-50.0) Monocytes (%) (Auto) 5.6 % (0.0-12.0) Eosinophils (%) (Auto) 1.2 % (0.0-7.0) Basophils (%) (Auto) 0.4 % (0.0-2.0) Neutrophils # (Auto) 2.4 10 ^3/uL (1.6-8.6) Lymphocytes # (Auto) 3.0 10 ^3/uL (0.4-5.4) Monocytes # (Auto) 0.3 10 ^3/uL (0-1.3) Eosinophils # (Auto) 0.1 10 ^3/uL (0-0.8) Basophils # (Auto) 0 10 ^3/uL (0-0.2) Nucleated Red Blood Cells 0.1 % Total Bilirubin 0.4 mg/dL (0.2-1.0) Aspartate Amino Transferase (AST) 26 U/L (13-40) Alanine Aminotransferase (ALT) 29 U/L (7-40) Alkaline Phosphatase 91 U/L (46-116) Total Protein 7.4 g/dL (5.7-8.2) Albumin 4.6 g/dL (3.2-4.8) Other Laboratory Tests 08/09/24 06:09 08/08/24 09:50 Brief Hx & Hospital Course: 54-year-old female with chronic current meth abuse came in complaining of chest pain troponin negative x3 seen by cabinet abrasive sandblaster echo 55 percent ejection fraction. Cleared for discharge noncardiac chest pain advised to quit using methamphetamine prescription for tramadol transmitted to the pharmacy Consults/Reason for consult Cardiology Operations or Procedures Echocardiogram Condition at Discharge: Fair Final Diagnosis/Problems List Noncardiac chest pain Methamphetamine abuse Discharge Disposition: Home Discharge Instruct/Medications Diet: Regular Activity: See Comment Follow Up/Referral: Stop using methamphetamine Medications: Tramadol Transmitted to pharmacy 36 (Time Taken for discharge summary 36 minutes) Discharge Statement: "Patient was advised to return to the ER or call 911 if any headaches, dizziness, shortness of breath, chest pain, abdominal pain, bleeding, fevers, or worsening of medical condition. Patient was counseled about treatment plan, medications, possible side effects, patientverbalized understanding. All questions were answered to the best of my ability. This discharge took greater then 30 minutes in planning, reviewing documentation, counseling the patient, and discussing with other team members." ASSESSMENT ASSESSMENT Hospital Course Improved Assessment Noncardiac chest pain Methamphetamine abuse Date of Service: Aug 10, 2024 Billing Provider: FRANTZ FOSTER MD Common Visit Codes: 57335-SIO/OBS DISCH DAY >30min FRANTZ FOSTER MD Aug 10, 2024 11:38
[2024-08-10 13:00] VITALS: BP 106/64; PULSE 63; RESP 20; TEMP 98; O2SAT 100
== END 2024-08-10 13:50 | disposition home or self-care (01) | DRG 313 ==
LOC: ER 09:41 → OVERFLOW 18:40 → EAST 21:14
PROVIDERS: ADMIT Nurse Practitioner; ATTEND Family Medicine
DX: R07.89 Other chest pain (principal); I20.0 Unstable angina; N39.0 Urinary tract infection, site not specified; F17.290 Nicotine dependence, other tobacco product, uncomplicated; F32.A Depression, unspecified; F17.210 Nicotine dependence, cigarettes, uncomplicated; F15.10 Other stimulant abuse, uncomplicated; Z79.899 Other long term (current) drug therapy; Z79.1 Long term (current) use of non-steroidal anti-inflammatories (NSAID); Z79.2 Long term (current) use of antibiotics; Z82.49 Family history of ischemic heart disease and other diseases of the circulatory system
CPT/HCPCS: 36415; 71045; 80048; 80053; 81001; 84484; 85025; 93005; 93306; 99291; G0378

== ENCOUNTER 2025-04-03 02:12 | Emergency (ER) | payer BC ==
[~2025-04-03] VITALS: Ht 167.6 cm; Wt 73.3 kg
[~2025-04-03 02:12] MED LIST changes: -ACE3T PO; -CIPR-173 PO; -CYCL-837 PO; -DIPH50TA9 PO; -EPIN1INJ IJ; -FAMO20TA10 PO; +GABA-1250; -LEVOTAB51 PO; -NITR-87 PO; -PRED20TA2 PO; -TRAM-297 PO; +TRAM-626 PO
[2025-04-03] MEDS: BACITRACIN TOP OINT 1 UD PKG TOP ONE (03:15)
--- NOTE | 2025-04-03 03:43 | ED.PDOC ---
History of Present Illness HPI Comments This is a 54-year-old with history of polysubstance use dependence who presented to the ER for the evaluation of dog bites, patient was at a birthday green party of her cousin when he was involved in a fight apparently, and her cousins dog bit her at least twice in the buttocks. Patient says that the dog breed is Doberman but she does not know how long her cousin had the dog or if the dog was vaccinated or how did he got the dog. Patient tried to reach out with a cousin but there was no response. Patient denies fever, chills, nausea, vomiting, any abdominal or urinary symptoms at this time. Patient seen and examined along with Dr. Witt. One punctate bite wound on each buttock, erythematous but no purulent drainage seen. Chief Complaint: Animal Bite Time Seen by MD: 02:19 Primary Care Provider: kevin Allergies: Coded Allergies: NO KNOWN ALLERGIES (Unverified , 04/13/20) Home Meds Active Scripts Bacitracin (Bacitracin Oint) 1 Applic Ap, 1 APPLIC TOP BIDP PRN for 5 Days, #10 APPLIC 0 Refills Prov:HONEY CHOIER RESIDENT 04/03/25 Amoxicillin & Pot Clavulanate (AUGMENTIN TABLET) 875 Mg Tb, 875 MG PO BID for 5 Days, #10 TAB 0 Refills Prov:JIMBOKEIRA RESIDENT 04/03/25 Tramadol HCl (Tramadol HCl) 50 Mg Tab, 50 MG PO QID PRN, #30 TAB Prov:FRANTZ FOSTER MD 08/10/24 Reported Medications Gabapentin (Gabapentin) 300 Mg Cap 08/08/24 Information Source: Patient, Relative Mode of Arrival: Ambulatory Past Medical History PAST MEDICAL HISTORY: Depression, UTI'S Past Medical History (Other): Polysubstance drug use Surgical History: Denies all surgeries BRIMMER BLOCKER History: No Pertinent BRIMMER BLOCKER History Family History Family History: Reviewed,noncontributory to illness, Family hx of HTN Social History Smoker: Cigarettes Alcohol: Occasionally Drugs: Methamphetamine Lives In: Home Constitutional: denies: chills, diaphoresis, fatigue, fever, malaise, sweats, weakness, others EENTM: denies: blurred vision, double vision, ear bleeding, ear discharge, ear drainage, ear pain, ear ringing, eye pain, eye redness, hearing loss, mouth pain, mouth swelling, nasal discharge, nose bleeding, nose congestion, nose pain, photophobia, tearing, throat pain, throat swelling, voice changes, others Respiratory: denies: cough, hemoptysis, orthopnea, SOB at rest, shortness of breath, SOB with excertion, stridor, wheezing, others Cardiovascular: denies: chest pain, dizzy spells, diaphoresis, Dyspnea on exertion, edema, irregular heart beat, left arm pain, lightheadedness, palpitations, PND, syncope, others Gastrointestinal: denies: abdomen distended, abdominal pain, blood streaked bowels, constipated, diarrhea, dysphagia, difficulty swallowing, hematemesis, melena, nausea, poor appetite, poor fluid intake, rectal bleeding, rectal pain, vomiting, others Genitourinary: denies: abnormal vagina bleeding, burning, dyspareunia, dysuria, flank pain, frequency, hematuria, incontinence, pain, , vagina discharge, urgency, others Neurological: denies: dizziness, fainting, headache, left sided numbness, left sided weakness, numbness, paresthesia, pre-existing deficit, right sided numbness, right sided weakness, seizure, speech problems, tingling, tremors, weakness, others Musculoskeletal: reports: others (Hip pain, bite wound); denies: back pain, gout, joint pain, joint swelling, muscle pain, muscle stiffness, neck pain Integumetry: denies: bruises, change in color, change in hair/nails, dryness, laceration, lesions, lumps, rash, wounds, others Allergic/Immunocompromised: denies: Difficulty Healing, Frequent Infections, Hives, Itching, others Hematologic/Lymphatic: denies: anemia, blood clots, easy bleeding, easy bruising, swollen glands, others Endocrine: denies: excessive hunger, excessive sweating, excessive thirst, excessive urination, flushing, intolerance to cold, intolerance to heat, unexplained weight gain, unexplained weight loss, others Psychiatric: denies: anxiety, bipolar disorder, depression, hopeless, panic disorder, schizophrenia, sleepless, suicidal, others Physical Exam General Appearance: No Apparent Distress, Normal HEENT: Normal ENT Inspection, Pharynx Normal, TMs Normal Neck: Full Range of Motion, Non-Tender, Normal, Normal Inspection Respiratory: Chest Non-Tender, Lungs Clear, No Accessory Muscle Use, No Respiratory Distress, Normal Breath Sounds Cardiovascular: No Edema, No JVD, No Murmur, No Gallop, Normal Peripheral Pulses, Regular Rate/Rhythm Breast Exam: Deferred Gastrointestinal: No Organomegaly, Non Tender, No Pulsatile Mass, Normal Bowel Sounds, Soft Genitalia: Deferred Pelvic: Deferred, Other (Bilateral buttock a bite wound on each side, which is erythematous but not draining purulent substance.) Rectal: Deferred Extremities: No calf tenderness, Normal capillary refill, Normal inspection, Normal range of motion, Non-tender, No pedal edema Musculoskeletal : Apperance: Normal Neurologic: Alert, administration professional II-XII nml as Tested, No Motor Deficits, Normal Affect, Normal Mood, No Sensory Deficits Cerebellar Function: Normal Reflexes: Normal Skin: Dry, Normal Color, Warm Lymphatic: No Adenopathy Was a procedure done? Was a procedure done?: No Differential Dx Considerations may include: Bite wound/cellulitis/necrotizing fasciitis X-Ray, Labs, Meds, VS Vital Signs Date Time Temp Pulse Resp B/P (MAP) Pulse Ox O2 Delivery O2 Flow Rate FiO2 04/03/25 04:49 85 19 130/76 04/03/25 04:20 98.0 86 19 135/76 (95) 97 98.0 04/03/25 04:20 86 19 97 Room Air 04/03/25 04:19 86 19 135/76 04/03/25 02:14 98.0 123 20 105/87 100 98.0 Current Medications Medications (Trade) Dose Ordered Sig/Jordin Route Start Time Stop Time Status Last Admin Diphtheria/ Tetanus/Acell Pertussis (Boostrix T-Dap) 0.5 ml ONCE ONCE IM 04/03/25 03:15 04/03/25 03:19 DC 04/03/25 04:19 Morphine Sulfate 1 mg ONCE ONCE IM 04/03/25 03:15 04/03/25 03:19 DC 04/03/25 04:19 Amoxicillin/ Clavulanate Potassium (Augmentin Tablet) 875 mg ONCE ONCE PO 04/03/25 03:15 04/03/25 03:19 DC 04/03/25 04:18 Acetaminophen (Tylenol Tablet) 650 mg ONCE ONCE PO 04/03/25 03:15 04/03/25 03:19 DC 04/03/25 04:20 Rabies Immune Globulin (Kedrab) 20 International Units/kg... ONCE ONCE IM 04/03/25 03:45 04/03/25 03:54 DC 04/03/25 04:28 Rabies Vaccine (Rabavert) 2.5 units ONCE ONCE IM 04/03/25 03:45 04/03/25 03:54 DC 04/03/25 04:07 Images Reviewed?: Images reviewed and evaluated by me Time of 1ST Reevaluation: 04:00 Reevaluation 1ST: Improved Patient Education/Counseling: Diagnosis, Treatment, Prognosis, Need For Follow Up Family Education/Counseling: Diagnosis, Treatment, Prognosis, Need For Follow Up SEPSIS Sepsis Screen Date sepsis recognized/suspect: Apr 03, 2025 Time Sepsis recognized/suspect: 214 Recent Procedure: No On Antibiotic Therapy: No Respiratory Rate >20: No Heart Rate >90: Yes Temp<36 C (96.8 F) or >38.3 C: No SBP <90 or MAP <65 mmHG: No New Acute Mental Status Change: No Is the patient on CPAP, BIPAP,: No Vital Signs Date Time Temp Pulse Resp B/P (MAP) Pulse Ox O2 Delivery O2 Flow Rate FiO2 04/03/25 04:49 85 19 130/76 04/03/25 04:20 98.0 86 19 135/76 (95) 97 98.0 04/03/25 04:20 86 19 97 Room Air 04/03/25 04:19 86 19 135/76 04/03/25 02:14 98.0 123 20 105/87 100 98.0 Medications Medications Dose Ordered Sig/Jordin Route Start Time Stop Time Status Last Admin Dose Admin Acetaminophen 650 mg ONCE ONCE PO 04/03/25 03:15 04/03/25 03:19 DC 04/03/25 04:20 Amoxicillin/ Clavulanate Potassium 875 mg ONCE ONCE PO 04/03/25 03:15 04/03/25 03:19 DC 04/03/25 04:18 Diphtheria/ Tetanus/Acell Pertussis 0.5 ml ONCE ONCE IM 04/03/25 03:15 04/03/25 03:19 DC 04/03/25 04:19 Morphine Sulfate 1 mg ONCE ONCE IM 04/03/25 03:15 04/03/25 03:19 DC 04/03/25 04:19 Rabies Immune Globulin 20 International Units/kg... ONCE ONCE IM 04/03/25 03:45 04/03/25 03:54 DC 04/03/25 04:28 Rabies Vaccine 2.5 units ONCE ONCE IM 04/03/25 03:45 04/03/25 03:54 DC 04/03/25 04:07 Departure 1 Departure Time of Disposition: 05:00 Impression: Primary Impression: Dog bite of buttock Disposition: 01 HOME / SELF CARE / HOMELESS Condition: Stable Additional Instructions: Complete rabies vaccine HDCV or PCECV : 1 dose 1 mL intramuscular on day 3, 7, 14. day 0 vaccine has been administered. Rabies immunoglobulin has been administered 20 IU per kg body weight Tablet Augmentin 875 b.i.d. for 5 days Bacitracin ointment b.i.d. p.r.n. Do not close the wound, animal bites originally left open to heal to prevent trapping bacteria inside Please go to the ER or call your doctor if you noticed redness swelling warmth or pus from the bite, fever or chills, numbness, trouble moving lower extremity or joints Do not try to catch or handle the stray cat, or dogs e-Prescriptions Bacitracin (Bacitracin Oint) 1 Applic Ap 1 APPLIC TOP BIDP PRN for 5 Days, #10 APPLIC 0 Refills Prov: KEIRA CHOI RESIDENT 04/03/25 Amoxicillin & Pot Clavulanate (AUGMENTIN TABLET) 875 Mg Tb 875 MG PO BID for 5 Days, #10 TAB 0 Refills Prov: KEIRA CHOI RESIDENT 04/03/25 Discharged With: Self, Spouse Comments Attestation: I saw and evaluated the patient. I agree with the findings and plan of care as documented by the resident note. JULIETTE WITT MD Critical Care Note Critical Care Time?: No Stability Stability form required: No KEIRA CHOI RESIDENT Apr 03, 2025 03:42 JULIETTE WITT MD Apr 03, 2025 05:53
[2025-04-03] MEDS ORDERED: BAC09TP TOP (03:57)
[2025-04-03] MEDS ORDERED: AUG875T PO (03:57)
[2025-04-03] MEDS: RABIES VACCINE (PCEC)/PF 2.5 UNITS IM ONE (04:07)
[2025-04-03] MEDS: AMOXICILLIN/CLAVUL 875 MG TAB PO ONE (04:18)
[2025-04-03] MEDS: TETANUS-DIPTH-ACEL PERTUSSIS 0.5ML SYR Tdap IM ONE (04:19)
[2025-04-03] MEDS: MORPHINE SULFATE INJ 2 MG/ml SYRG IM ONE (04:19)
[2025-04-03 04:20] VITALS: TEMP 98; O2SAT 97
[2025-04-03] MEDS: ACETAMINOPHEN 325 MG TAB PO ONE (04:20)
[2025-04-03] MEDS: RABIES IMMUNE GLOBULIN 300unit/2ml (150unit/ml) INJ IM ONE (04:28)
[2025-04-03 04:49] VITALS: BP 130/76; PULSE 85; RESP 19
== END 2025-04-03 05:11 | disposition home or self-care (01) ==
LOC: ER 02:12
DX: S31.805A Open bite of unspecified buttock, initial encounter (principal); S31.825A Open bite of left buttock, initial encounter; S31.815A Open bite of right buttock, initial encounter; F17.210 Nicotine dependence, cigarettes, uncomplicated; Z87.440 Personal history of urinary (tract) infections; W54.0XXA Bitten by dog, initial encounter; Y93.89 Activity, other specified; Y92.89 Other specified places as the place of occurrence of the external cause; Y99.8 Other external cause status
CPT/HCPCS: 90377; 90471; 90472; 90675; 90715; 96372; 99284; J2270